=== PATIENT | female | born 1995 | race Caucasian/White ===

== ENCOUNTER 2017-10-26 20:33 | Emergency (ER) | payer MEDICAID ==
[2017-10-26 22:06] LABS: SQUAMOUS EPITHIAL < 1 /hpf (0-5); URINE BACTERIA RARE (<OCC); URINE BILIRUBIN NEGATIVE (NEGATIVE); URINE BLOOD NEGATIVE (NEGATIVE); URINE CLARITY Clear (Clear); URINE COLOR Yellow (YELLOW); URINE GLUCOSE (UA) NORMAL (Normal); URINE LEUKOCYTE ESTERASE NEG Leu/uL (Negative); URINE PROTEIN NEGATIVE (NEGATIVE); URINE UROBILINOGEN NORMAL mg/dL (0.2-1.0)
[2017-10-26 22:10] LABS: HCG,QUALITATIVE URINE NEGATIVE (NEGATIVE)
--- NOTE | 2017-10-26 22:22 | C.PDOC ---
History Of Present Illness 22 year old female presents to the ER with a complaint of pelvic pressure, dysuria and urinary frequency for the past 1-2 weeks. Patient states she has a Hx of UTI in the past and states it feels the same as previous presentations. Her last UTI was 2 months ago. She reports she has not been sexually active over the last 6 months and was seen by her [facility] [employer] 2 months ago for STD screening with negative results. Patient also notes she is diabetic, compliant with her medication, states her sugars are usually in the 100s. Denies back pain, rash, vaginal discharge, or vaginal bleeding. Time Seen by Provider: 10/26/17 21:00 Chief Complaint (Nursing): Female Genitourinary History Per: Patient History/Exam Limitations: no limitations Onset/Duration Of Symptoms: Days Current Symptoms Are (Timing): Still Present Quality Of Discomfort: Pressure Associated Symptoms: Urinary Symptoms (Frequency). denies: Fever, Chills, Other (Vaginal discharge) Alleviating Factors: None Recent travel outside of the [place]: No Abnormal Vaginal Bleeding: No Past Medical History Reviewed: Historical Data, Nursing Documentation, Vital Signs Vital Signs: Last Vital Signs Temp 98.9 F 10/26/17 22:53 Pulse 91 H 10/26/17 22:53 Resp 19 10/26/17 22:53 BP 133/81 10/26/17 22:53 Pulse Ox 100 10/26/17 23:40 - Medical History PMH: Migraine Surgical History: Cholecystectomy Family History: States: Unknown Family Hx - Social History Hx Tobacco Use: No Hx Alcohol Use: No Hx Substance Use: No - Immunization History Hx Tetanus Toxoid Vaccination: No Hx Influenza Vaccination: No Hx Pneumococcal Vaccination: No Review Of Systems Constitutional: Negative for: Fever, Chills Genitourinary: Positive for: Frequency, Pelvic Pain (Pressure). Negative for: Vaginal Discharge, Vaginal Bleeding, Rash Physical Exam - Physical Exam Appears: Non-toxic, No Acute Distress Skin: Normal Color, Warm, Dry Head: Atraumatic, Normacephalic Eye(s): bilateral: Normal Inspection, EOMI Nose: Normal Oral Mucosa: Moist Neck: Normal ROM, Supple Chest: Symmetrical Respiratory: No Accessory Muscle Use Gastrointestinal/Abdominal: Soft, Tenderness (Suprapubic), No Guarding, No Rebound Back: No CVA Tenderness Pelvic: Normal External Exam, Normal Speculum Exam, No Vaginal Bleeding, No Vaginal Discharge, No Cervical Motion Tenderness, No Adnexal Tenderness Extremity: Normal ROM Neurological/Psych: Oriented x3, Normal Speech ED Course And Treatment O2 Sat by Pulse Oximetry: 100 (Room air) Pulse Ox Interpretation: Normal Progress Note: Discussed results of UA with pt, discussed UA does not reveal infection. Will treat patient clinically for UTI based on symptoms and Hx, patient advised to follow up with [facility] and urology for further evaluation. Disposition - Disposition Referrals: Laith Holland MD [Staff Provider] - Disposition: HOME/ ROUTINE Disposition Time: 22:21 Condition: STABLE Additional Instructions: Follow up with your primary medical doctor or clinic in 2-5 days for further evaluation. Take medications as prescribed. Return to the emergency department at any time if symptoms persist or worsen. Prescriptions: Nitrofurantoin Macrocrystals [Macrobid] 1 cap PO BID #10 cap Phenazopyridine HCl [Pyridium] 100 mg PO TID #6 tablet Instructions: Dysuria, Adult (DC) Forms: [employer] (Welsh) - Clinical Impression Clinical Impression: Dysuria - PA / CURRICULUM DIRECTOR / Resident Statement MD/DO has reviewed & agrees with the documentation as recorded. - Scribe Statement The provider has reviewed the documentation as recorded by the Scribe Cj Pires All medical record entries made by the Scribe were at my direction and personally dictated by me. I have reviewed the chart and agree that the record accurately reflects my personal performance of the history, physical exam, medical decision making, and the department course for this patient. I have also personally directed, reviewed, and agree with the discharge instructions and disposition.
[2017-10-26 22:54] VITALS: BP 133/81; PULSE 91; RESP 19; TEMP 98.9
[2017-10-26 23:36] VITALS: O2SAT 100
== END 2017-10-26 22:54 | disposition home or self-care (01) ==
LOC: C.ER 20:33
DX: R30.0 Dysuria (principal); E11.9 Type 2 diabetes mellitus without complications